=== PATIENT | female | born 1935 | race Native Hawaiian/Other Pacific Islander ===

== ENCOUNTER 2022-02-08 08:49 | Outpatient (CLI) | payer OTHER | END 2022-02-08 19:27 | disposition home or self-care (01) | LOC: MRI 08:49 | PROVIDERS: ATTEND Orthopaedic Surgery | DX: S22.080A Wedge compression fracture of T11-T12 vertebra, initial encounter for closed fracture (principal); Y92.89 Other specified places as the place of occurrence of the external cause ==